=== PATIENT | female | born 1955 | race Caucasian/White ===

== ENCOUNTER 2020-09-04 05:19 | Observation (INO) ==
--- NOTE | 2020-08-15 15:21 | PAT Medication Instructions ---
Medication Instructions Date of Service August 15, 2020 Home Medications Flamydol Rx 100 mg PO TID PRN Inhaler Otc 1 inh INHALATION HS PRN Matrix 1 tab PO TID PRN Vitamin E Otc 1 cap PO QAM calcium carbonate [Tums] 400 mg PO HS PRN loratadine-pseudoephedrine [Claritin-D 12 Hour] 1 tab PO QAM PRN pregabalin [Lyrica] 75 mg PO BID ASK your surgeon for instructions Flamydol Rx 100 mg PO TID PRN STOP taking 2 weeks before surgery Vitamin E Otc 1 cap PO QAM Matrix 1 tab PO TID PRN DO NOT take the morning of surgery loratadine-pseudoephedrine [Claritin-D 12 Hour] 1 tab PO QAM PRN Take morning of surgery With a small sip of water, OTHERWISE NOTHING TO EAT OR DRINK AFTER MIDNIGHT: pregabalin [Lyrica] 75 mg PO BID Take evening before surgery Inhaler Otc 1 inh INHALATION HS PRN (if needed) calcium carbonate [Tums] 400 mg PO HS PRN (if needed) pregabalin [Lyrica] 75 mg PO BID Other Notes If you have any questions please call us at [phone] or [phone] or [phone] or [phone]
--- NOTE | 2020-08-20 10:52 | Anesthesiology Consultation ---
Date of Service August 20, 2020 Assessment & Plan (1) Encounter for pre-operative examination: COVID screening: Per assessment on 08/20: Travel screen negative since 08/10 (prior to that, was living in [facility]). Return from travel > 5 days prior to preop COVID testing. Patient vaccinated. No known COVID-19 positive contacts or current COVID-19 related symptoms. Surgeon arranging preop COVID testing. Awaiting results. Chart Review Chart Review: Acceptable Risk for Surgery (pending surgeon-ordered PCP clearance) and Patient seen in Pre Admission Testing Teaching & Discussion Pre-Anesthesia Teaching/Discussion Notes: Instructed NPO after midnight before surgery,except medications with 15 cc of water. Medication instructions provided according to the PAT guidelines. History Surgery Operation Date: 09/04/20 07:00 Proposed Procedures p Left Total Hip Arthroplasty - Hermelindo Sanchez MD Height/Weight Height: 5 ft 8 in Weight: 96.8 kg Allergies Allergy/AdvReac Type Severity Reaction Status Date / Time Sulfa (Sulfonamide Allergy Unknown Nausea Verified 08/15/20 11:20 Antibiotics) Medications Home Medications Medication Instructions Recorded Confirmed Last Taken Flamydol Rx 100 mg PO TID PRN 08/15/20 08/15/20 Unknown Inhaler Otc 1 inh INHALATION HS PRN 08/15/20 08/15/20 Unknown Matrix 1 tab PO TID PRN 08/15/20 08/15/20 Unknown Vitamin E Otc 1 cap PO QAM 08/15/20 08/15/20 Unknown calcium carbonate 200 mg calcium 400 mg PO HS PRN 08/15/20 08/15/20 Unknown (500 mg) chewable tablet (Tums) loratadine 5 mg-pseudoephedrine ER 1 tab PO QAM PRN 08/15/20 08/15/20 Unknown 120 mg tablet,extended release,12hr (Claritin-D 12 Hour) pregabalin 75 mg capsule (Lyrica) 75 mg PO BID 08/15/20 08/15/20 Unknown Past Medical History Medical History Diverticular disease GERD (gastroesophageal reflux disease) occasional Neuropathy hands, feet Osteoarthritis Exercise / Class Metabolic Activity II 4-5 Yardwork/Stairs/Walk up hill (one FS (no CP, no SOB)) Past Family History Family History Grandmother (Maternal) Family history of diabetes mellitus Sister Family history of diabetes mellitus Past Surgical History Surgical History History of appendectomy History of cholecystectomy History of colonoscopy History of esophagogastroduodenoscopy (EGD) History of hysterectomy Pilonidal cyst Removal Past Anesthesia History No Hx of Anesthesia Complications and No Family Hx of Anesthesia Complications History of PONV No Hx of PONV and Hx of Motion Sickness (occasional) Social History Smoking Status: Never smoker Do You Dip or Chew Tobacco: No Hx Alcohol Use: Yes Alcohol type: wine alcohol intake frequency: 0-2 drinks per day (1-2 drinks/day) Hx Substance Use: No Review of Systems Patient denies chest pain, shortness of breath, dyspnea on exertion, fever, c hills, cough, wheezing, palpitations. Physical Exam Vital Signs VITALS BP 134/89 P 64 TEMP 98.2 SP02 98%RA RESP 16 PHYSICAL Mildly decreased cervical extension range of motion (+ cervicalgia). Full TMJ range of motion. TMD 3 finger breaths Mallampati Score 3 Dentition: intact, implant (including upper front and molar) Lungs: clear throughout to auscultation Cardiac: regular rate and rhythm, no murmurs noted Spine: normal Carotid arteries: negative bruit Extremities: no edema Lab Results Anesthesia Preop Results Results Anesthesia Widget: WBC 5.10 K/uL (4.8-10.8) 08/20/20 Hgb 13.8 g/dL (12.0-16.0) 08/20/20 Hct 42.3 % (37-47) 08/20/20 Plt 206 K/uL (130-400) 08/20/20 Na 141 mmol/L (136-145) 08/20/20 K 4.7 mmol/L (3.5-5.1) 08/20/20 Cl 109 mmol/L (98-107) H 08/20/20 CO2 30 mmol/L (21-32) 08/20/20 BUN 24 mg/dl (7-18) H 08/20/20 Creat 0.74 mg/dl (0.6-1.2) 08/20/20 Glucose Level 85 mg/dl (70-99) 08/20/20 PT 10.3 Seconds (9.0-12.0) 08/20/20 INR 1.0 (0.9-1.1) 08/20/20 HA1c 5.2 % (4.5-5.6) 08/20/20 Urine Color Yellow 08/20/20 Urine Appearance Clear (Clear) 08/20/20 Urine pH 7.0 (4.5-7.5) 08/20/20 Urine Specific [place] 1.024 (1.000-1.030) 08/20/20 Urine Protein Negative (Negative) 08/20/20 Urine Glucose (UA) Negative (Negative) 08/20/20 Urine Ketones Negative (Negative) 08/20/20 Urine Blood Negative (Negative) 08/20/20 Urine Nitrite Negative (Negative) 08/20/20 Urine Bilirubin Negative (Negative) 08/20/20 Urine Urobilinogen Negative (Negative) 08/20/20 Urine Leukocyte Esterase Negative (Negative) 08/20/20 Blood Type B Positive 08/20/20 Antibody Screen NEGATIVE 08/20/20 Testing Electrocardiogram Date: 08/20/20 Kelvin bradycardia 58 bpm. LAD. Low voltage QRS.
--- NOTE | 2020-08-20 16:17 | History & Physical Report ---
Date of Service August 20, 2020 Assessment & Plan (1) Osteoarthritis of left hip: Plan: PRE-OP Diagnosis: Left hip osteoarthritis Planned Procedure: Left total hip arthroplasty Plan: Patient is scheduled to undergo this procedure at the [facility] on September 04, [address] Hermelindo Lowe risks and complications of the procedure such as: Infection, bleeding, pain, scarring, nerve or blood vessel damage, weakness, wound problems, stiffness, incomplete relief of symptoms, hardware failure, hardware loosening, wear, fracture, tendon or ligament injury, dislocation, leg length inequality, blood clots, embolism, heart attack, stroke and were explained to the patient at her visit by Dr. Sanchez on August 12. Informed consent form the procedure was obtained at that time. Patient also understands risks of proceeding with surgical invention during the COVID-19 pandemic. Currently she is asymptomatic and understands that she will need to be tested 2 to 3 days prior to her surgery. Patient is scheduled for her preanesthesia clearance evaluation hospital later this morning, and while there she will obtain a CBC with differential, complete metabolic panel, PT/INR, blood type and screen, urinalysis, urine culture and sensitivity, EKG, hemoglobin A1c and a nasal culture for MRSA. She is scheduled for her PCP clearance tomorrow at [address] Penn. During today's visit we reviewed the total hip packet, talked about total hip precautions, discussed discharge planning, talked about lectures offered by [facility] in regards to joint replacement surgery and the use of antibiotics prior to dental procedures following joint replacement. I provided the patient with orders to obtain a walker, raised toilet seat, shower chair and a hospital bed. Advised her to purchase a kit from either [employer] or [employer]. We also discussed the use of an abduction pillow for 6 weeks postoperatively. I advised the patient she will be discharged from the hospital with a prescription for opioid analgesic for postoperative pain control. She will also be prescribed diclofenac sodium for inflammation relief. She will be on a baby aspirin twice daily for blood clot prevention for the first 30 days postoperatively and we will have her supplement for additional pain using extra strength Tylenol. Patient is scheduled for 2- week postoperative follow-up with myself on September 17 at 11:15 AM. Patient verbalized understanding of all information provided during today's visit. She thanks for the care that she received. If she has questions or concerns should arise prior to her surgery, she will contact clinic. History of Present Illness Chief Complaint: Chief Complaint: Left hip pain Primary Care Provider: NO PCP History of Present Illness (including history relevant to procedure): This 65-year-old female presents the clinic today for preoperative history and ph ysical. Patient states that the pain has been ongoing for long time however during the last year pain intensified to the point that it started interfering with her activities of daily living and ambulation. She started to admit using a walker lately due to that. She stated that the initially she had right hip pain but afterwards the pain shifted to the left side. She has been seen by In [facility] and an MRI was done for hip back there, the doctor advised her to proceed with a total hip replacement. In March 2020 she had an injection of her left trochanteric bursa for bursitis, currently she is not experiencing any lateral hip pain. Review Of Systems: A 14 point review of systems performed is unremarkable except for those things stated in the HPI and past medical history. Past Medical History: Problems: Osteoarthritis of left hip Pre-op exam Obesity Sleep apnea Polyneuropathy GERD Procedure History Procedure Procedure Date Comments Dental implants Hysterectomy Cholecystectomy Allergies and Sensitivities: sulfa drugs(nausea) Family history: Cancer, rheumatoid arthritis, diabetes, leukemia and heart disease Social history: Patient denies tobacco or illicit drug use. She states she consumes approximately 14 alcoholic beverages per week Current Home Meds: (Last Updated 08/20 09:08) acetaminophen-traMADol (acetaminophen-traMADol 325 mg-37.5 mg oral tablet) 2 tab PO q12h PRN: as needed for pain diclofenac (diclofenac sodium 100 mg oral tablet, extended release) 100 mg PO Daily PRN: as needed for pain fexofenadine (Jyotsna) pregabalin (Lyrica) Allergies Allergy/AdvReac Type Severity Reaction Status Date / Time Sulfa (Sulfonamide Allergy Unknown Nausea Verified 08/15/20 11:20 Antibiotics) Home Medications Medication Instructions Recorded Confirmed Type Flamydol Rx 100 mg PO TID PRN 08/15/20 08/15/20 History Inhaler Otc 1 inh INHALATION HS PRN 08/15/20 08/15/20 History Matrix 1 tab PO TID PRN 08/15/20 08/15/20 History Vitamin E Otc 1 cap PO QAM 08/15/20 08/15/20 History calcium carbonate 200 mg calcium 400 mg PO HS PRN 08/15/20 08/15/20 History (500 mg) chewable tablet (Tums) loratadine 5 mg-pseudoephedrine ER 1 tab PO QAM PRN 08/15/20 08/15/20 History 120 mg tablet,extended release,12hr (Claritin-D 12 Hour) pregabalin 75 mg capsule (Lyrica) 75 mg PO BID 08/15/20 08/15/20 History Past Med/Surg History Medical History (Updated 08/20/20 @ 16:17 by Kelivn Vizcaino PA-C) Diverticular disease GERD (gastroesophageal reflux disease) occasional Neuropathy hands, feet Osteoarthritis Surgical History History of appendectomy History of cholecystectomy History of colonoscopy History of esophagogastroduodenoscopy (EGD) History of hysterectomy Pilonidal cyst Removal Family History Grandmother (Maternal) Family history of diabetes mellitus Sister Family history of diabetes mellitus Social History (Updated 08/15/20 @ 12:03 by Milagro Hinton RN) Smoking Status: Never smoker Second Hand Exposure: Yes (PARENST SMOKED); Hx Alcohol Use: Yes Alcohol type: wine Hx Substance Use: No Preferred Language: Botswanan Communication Ability: Effective Beeswax Bleacher Required: No Beliefs That Will Affect Care: None Current Living Situation: Family Current Living Situation Comment: [facility] WITH [facility] FOR SURGERY current occupational status: retired Feels Safe at Home: Yes Assistive Devices: Cane and Glasses Physical Exam Physical Exam: Physical Exam: (relevant to the procedure, including heart and lung evaluation) General: Alert and oriented x3 with proper grooming and hygiene Eyes: Pupils are equal and reactive to light with accommodation. Extraocular movements are intact Throat: Deferred due to COVID-19 precautions Cardiac: Regular rate and rhythm with no murmurs or gallops appreciated Lungs: Clear to auscultation throughout with no wheezing rales or rhonchi Abdomen: Obese, nondistended, nontender with NABS Extremities: Physical examination of the hips: Neurovascularly intact. Walking without crutches revealed some limping to the left side. Range of motion of the right hip: Flexion 100 degrees, abduction 30 degrees, adduction 15 degrees, internal rotation 20 degrees, external rotation 30 degrees. Range of motion of the left hip: Flexion 90 degrees, abduction 25 degrees, adduction 15 degrees, internal rotation 0 degrees, external rotation 45 degrees. There is flexion contracture of the left hip. And severe pain is experiencing upon moving the hip Neuro: Cranial nerves II through XII are intact no motor or sensory deficit Skin: Normal in appearance with no open skin areas or discharge Results & Data ([facility]) Diagnostic Findings Studies (relevant to the procedure): X-rays of the pelvis and the left hip AP lateral in the standing position were done and interpreted by Dr. Sanchez. They showed severe osteoarthritic changes bilaterally more on the left side.
[2020-09-04] MEDS ORDERED: ROPIVACAINE 0.5% HCL/PF 150 MG, BUPIVACAINE 0.75% MPF 20 ML, EPINEPHrine 0.15 MG, Ketor... INFIL SCH (06:00)
[2020-09-04] MEDS ORDERED: TRANEXAMIC ACID 1,000 MG **IV Intra-op IV SCH (06:00)
[2020-09-04] MEDS ORDERED: METOCLOPRAMIDE HCL 10 MG TABLET PO SCH (06:00)
[2020-09-04] MEDS ORDERED: LR 500ML BOLUS, THEN 15ML/HR IV SCH (06:00)
[2020-09-04] MEDS ORDERED: ceFAZolin 2000MG 2,000 MG/15 ML SYR IV SCH (06:00)
[2020-09-04] MEDS ORDERED: Scopolamine 1 MG TDSY TD SCH (06:00)
[2020-09-04] MEDS ORDERED: TRANEXAMIC ACID 1,000 MG **IV Pre-op IV SCH (06:00)
[2020-09-04] MEDS ORDERED: dexAMETHasone 4 MG TAB PO SCH (06:00)
[2020-09-04] MEDS ORDERED: LR 60ML/HR IV SCH (06:00)
[2020-09-04] MEDS ORDERED: FAMOTIDINE 20 MG TAB PO SCH (06:00)
[2020-09-04] MEDS ORDERED: ACETAMINOPHEN 500 MG TAB PO SCH (06:00)
[2020-09-04] MEDS ORDERED: traMADol HCL 50 MG TABLET PO SCH (06:00)
[2020-09-04] MEDS ORDERED: BUPIVACAINE 0.5 % 5 MG/1 ML PF 10ML VIAL ONE (06:17)
[2020-09-04] MEDS ORDERED: PROPOFOL IV EMULSION 10 MG/ML 20 ML VIAL IV ONE ×3 (06:25→08:27)
[2020-09-04] MEDS ORDERED: LIDOCAINE 2% 2 ML VIAL/AMP(20MG/ML) INFIL ONE (06:25)
[2020-09-04] MEDS ORDERED: MIDAZOLAM HCL 1 MG/ML 2ML VIAL ONE (06:26)
[2020-09-04] MEDS ORDERED: ORTHO JOINT ANESTHETIC ONE (06:39)
[2020-09-04] MEDS ORDERED: ATROPINE SULFATE 0.1 MG/ML 10ML SYR IV PRN (06:42)
[2020-09-04] MEDS ORDERED: ONDANSETRON INJ 2 MG/ML 2 ML VIAL IV PRN (06:42)
[2020-09-04] MEDS ORDERED: ePHEDrine sulfate 50 MG/ML AMP IV PRN (06:42)
[2020-09-04] MEDS ORDERED: HYDROmorphone INJ 1 MG/ML SYRINGE IV PRN (06:42)
--- NOTE | 2020-09-04 06:45 | History & Physical Bridge Note ---
Date of Service September 04, 2020 History & Physical Bridge Note I have examined the patient, reviewed the History & Physical and in the interval since the performance of the History & Physical I have noted the following changes of clinical significance: no changes noted
[2020-09-04] MEDS ORDERED: ESMOLOL HCL INJ 10 MG/ML 10ML VIAL IV ONE (07:42)
[2020-09-04] MEDS ORDERED: ONDANSETRON INJ 2 MG/ML 2 ML VIAL ONE (08:36)
[2020-09-04] MEDS ORDERED: NALOXONE HCL 0.4 MG/1 ML VIAL/CARP IV PRN (09:06)
[2020-09-04] MEDS ORDERED: METOCLOPRAMIDE HCL INJ 5 MG/ML 2 ML VIAL IV PRN (09:06)
[2020-09-04] MEDS ORDERED: diphenhydrAMINE 50 MG/ML VIAL IV PRN (09:06)
[2020-09-04] MEDS ORDERED: bisacodyL 10 MG SUPP PR PRN (09:06)
[2020-09-04] MEDS ORDERED: MAGNESIUM HYDROXIDE SUSP 30 ML UDC PO PRN (09:06)
--- NOTE | 2020-09-04 09:06 | Operative Report ---
Post Operative Report Pre & Post Diagnosis Operation Date: 09/04/20 07:00 Pre-Op Diagnosis: Left Hip Osteoarthritis Post-Op Diagnosis: Left Hip Osteoarthritis I identified the patient and participated in the time-out.: Yes Procedure Operation Date: 09/04/20 07:00 Actual Procedures p Left Total Hip Arthroplasty(Left) - Hermelindo Sanchez MD Surgeon Hermelindo Sanchez MD Screen Print Operator Minoo Vizcaino PA-Santy Estimated Blood Loss 100 Findings Consistent with Post-Op Diagnosis Osteoarthritic left hip Specimens femoral head Description of Procedure I was present during the entire procedure assisting with positioning, prepping, draping, wound retraction, wound closure and dressing application. No fellow present. Please see Dr. Sanchez procedure note for specifics of the case. I attest to the content of the Intraoperative Record and any orders documented therein. Any exceptions are noted below.
[2020-09-04] MEDS ORDERED: [UNRECOGNIZED DRUG - OTHER] INH PRN (09:12)
[2020-09-04] MEDS ORDERED: CALCIUM CARBONATE 500 MG CHEWABLE TAB PO PRN ×2 (09:12→10:37)
[2020-09-04] MEDS ORDERED: [UNRECOGNIZED DRUG - OTHER] PO PRN (09:12)
[2020-09-04] MEDS ORDERED: [UNRECOGNIZED DRUG - OTHER] PO PRN (09:12)
[2020-09-04] MEDS ORDERED: SODIUM CHLORIDE 0.9% 1000ML 1,000 ML IV SCH (09:15)
--- NOTE | 2020-09-04 09:32 | XRay Report ---
XR pelvis 1-2V routine HISTORY: 65 years-old Female Post Surgical left hip total joint arthroplasty COMPARISON: Pelvis radiograph 08/20/2020 TECHNIQUE: AP view of the pelvis FINDINGS: Left hip total joint arthroplasty demonstrates satisfactory alignment. No acute fracture or unexpecte d opaque foreign body. Expected postoperative soft tissue swelling with deep tissue air lateral to th e left hip. Moderate to severe right hip osteoarthritis. IMPRESSION: Left hip total joint arthroplasty with expected postoperative changes. ACT 112: Negative or not required by law. The above report was generated using voice recognition software. It may contain grammatical, syntax o r spelling errors. Electronically signed by: Juan Shay M.D. 09/04/2020 9:30 AM
--- NOTE | 2020-09-04 09:46 | Anesthesiology Progress Note ---
Date of Service September 04, 2020 Anesthesia Post Procedure Vital Signs Vital Signs: Temp Pulse Pulse Resp BP Pulse Ox 09/04/20 09:40 36.4 C L 60 14 113/71 95 09/04/20 09:30 61 15 106/76 100 09/04/20 09:20 53 L 14 96/65 L 100 09/04/20 09:10 53 L 16 108/65 100 09/04/20 09:02 36.3 C L 63 19 95/59 L 96 09/04/20 05:51 36.7 C 75 18 134/87 96 Pain Intensity Left Hip: Pain Intensity: 4 Transfer of Care Handoff Completed per policy Notes Mental Status: alert / awake / arousable Patient Amnestic to Procedure: Yes Nausea / Vomiting: adequately controlled Pain: adequately controlled Airway Patency, RR, SpO2: stable & adequate BP & HR: stable & adequate Hydration State: stable & adequate Anesthetic Complications: no major complications apparent
--- NOTE | 2020-09-04 11:11 | Operative Report ---
Post Operative Report Pre & Post Diagnosis Operation Date: 09/04/20 07:00 Pre-Op Diagnosis: Left Hip Osteoarthritis Post-Op Diagnosis: Left Hip Osteoarthritis I identified the patient and participated in the time-out.: Yes Procedure Operation Date: 09/04/20 07:00 Actual Procedures p Left Total Hip Arthroplasty(Left) - Hermelindo Sanchez MD Surgeon Hermelindo Sanchez MD Ambulance Officer Minoo Vizcaino PA-C Estimated Blood Loss 100 Findings Consistent with Post-Op Diagnosis Specimens Left femoral head Anesthesia Type Spinal MAC Complications none Indications 65-year-old female with left hip arthritis refractory to conservative management. X-rays demonstrate focf-ep-hjan arthritis. I had a long discussion with her about the risks and benefits of surgery, alternatives to surgery, and expected outcomes. After reviewing all these she elected proceed with surgery. All questions were answered. Informed consent was signed. Description of Procedure Patient was identified in the preoperative holding area and the surgical site, left hip, was marked. A spinal anesthetic was placed, then the patient was brought back to the main operating room, placed in the operating table and moved into the lateral decubitus position. Axillary roll was placed. All bony prominences were padded. Perioperative antibiotics and tranexamic acid 1 gram IV were administered. Operative extremity was prepped and draped in the normal sterile fashion. Prior to incision a multidisciplinary timeout was called. All in the room were in agreement. We began by making an incision for a posterior approach to the hip. We dissected down through subcutaneous tissues to the level of the fascia. The fascia was incised in line with the incision. Charnley bow was placed. The trochanteric bursa was excised. The piriformis and short external rotators were dissected off the posterior aspect of the hip. A box cut was made in the capsule. The femoral head was dislocated. The femoral neck cut was made at our preoperative template. The acetabulum was then exposed. The labrum was sharply excised. Contents of the cotyloid fossa were removed with electrocautery. We then began reaming at a size 8 mm less than our preoperative template. We reamed up by 1 [address] the way up to a size 54 mm cup. This gave us good bleeding cancellus bone circumferentially. The acetabulum was then irrigated out and dried. The real Concan Gription cup was then impacted down into position with 45 degrees of lateral opening and 25 degrees of anteversion. A single cancellous bone screw was placed up into the ilium. Excellent fixation was obtained. An Altrx polyethylene liner for a 36 mm femoral head was then impacted into the shell. The locking mechanism was checked to ensure that it had engaged which it had. Next we turned our attention to the femur. The lateral neck was removed with a box osteotome. Intramedullary guide was used followed by the lateralizing reamer. We then reamed up to a size 4 Dunn stem. We then broached all the way up to a size 4. We began trialing with a high offset neck and a +5 head. Hip was reduced. Leg lengths were symmetric. The hip was stable in extension and external rotation, and stable in the sleeper position. At 90 degrees of hip flexion the hip could be internally rotated 55 degrees before levering out of the cup. I was very happy with the stability exam. Therefore the hip was dislocated and the femoral trial was removed. The femoral canal was irrigated and dried. The real size 4 high offset Dunn femoral stem was opened up. This was impacted down into position. It sat at the same level as the femoral trial. Therefore the 36 mm ceramic femoral head with a +5 mm offset was opened up and gently impacted down onto the trunnion. The hip was atraumatically reduced. Another 1 gram of IV tranexamic acid was started prior to closure. The wound was irrigated out with sterile Betadine solution. The periarticular injection cocktail was then placed. The short external rotators, piriformis, and posterior capsule were repaired through drill holes in the greater trochanter using #2 Vicryl. The fascia was run with a looped #1 PDS. The subcutaneous layer was closed with #1 PDS. The dermal layer was closed with 2-0 Vicryl. Zip line was used for the skin followed by a Silverlon dressing. A compressive dressing was then placed. The patient was then rolled supine. Leg lengths were rechecked and were symmetric. An abduction pillow was placed. Sedation was lifted and the patient was transferred to recovery room in stable condition. Summary of implants: Depuy Concan Gription Acetabular Shell Sector Cup, 54 mm outer diameter Concan Cancellous bone screw, 6.5 x 40 mm Concan Altrx Polyethylene Acetabular Liner, Neutral, with a 36 mm inner diameter DePuy Dunn Femoral stem with Porocoat, 12/14 taper, size 4 high offset 36 mm ceramic femoral head with +5 offset Postoperative course: Patient will be admitted to the hospital from the recovery room. Patient will be weightbearing as tolerated with posterior hip precautions. Aspirin for DVT prophylaxis I attest to the content of the Intraoperative Record and any orders documented therein. Any exceptions are noted below.
[2020-09-04] MEDS: KETOROLAC TROMETHAMINE 15 MG/ML VIAL IV SCH ×3 (11:52→23:08)
[2020-09-04] MEDS: ACETAMINOPHEN 500 MG TAB PO SCH ×2 (13:13→21:32)
[2020-09-04] MEDS: ceFAZolin 2000MG 2,000 MG/15 ML SYR IV SCH ×2 (15:30→23:07)
[2020-09-04] MEDS ORDERED: TRANEXAMIC ACID / 0.7% NACL 1,000 MG/100 ML BAG IV SCH (16:00)
[2020-09-04] MEDS: Scopolamine CHECK PATCH PLACEMENT SCH ×2 (16:29→23:08)
[2020-09-04] MEDS: oxyCODONE HCL IR 5 MG TAB (IMMEDIATE RELEASE) PO PRN (18:45)
[2020-09-04] MEDS: DOCUSATE SODIUM 100 MG CAP PO SCH (21:32)
[2020-09-04] MEDS: PREGABALIN 75 MG CAP PO SCH (21:32)
[2020-09-04] MEDS: SENNA 8.6 MG TAB PO SCH (21:33)
[2020-09-05] MEDS: KETOROLAC TROMETHAMINE 15 MG/ML VIAL IV SCH (05:53)
[2020-09-05] MEDS: ACETAMINOPHEN 500 MG TAB PO SCH ×3 (05:54→21:18)
[2020-09-05] MEDS ORDERED: dexAMETHasone 4 MG TAB PO SCH (08:00)
[2020-09-05] MEDS: PREGABALIN 75 MG CAP PO SCH ×2 (08:12→21:17)
[2020-09-05] MEDS: ASPIRIN 81 MG ECTAB PO SCH ×2 (08:13→21:18)
[2020-09-05] MEDS: oxyCODONE HCL IR 5 MG TAB (IMMEDIATE RELEASE) PO PRN (08:13)
[2020-09-05] MEDS: TOCOPHERYL, DL-ALPHA 100 UNITS CAP PO SCH (08:14)
[2020-09-05] MEDS: MULTIVITAMIN TAB PO SCH (08:14)
[2020-09-05] MEDS: DOCUSATE SODIUM 100 MG CAP PO SCH ×2 (08:15→21:17)
[2020-09-05] MEDS: ONDANSETRON INJ 2 MG/ML 2 ML VIAL IV PRN ×3 (08:18→23:41)
[2020-09-05] MEDS: Scopolamine CHECK PATCH PLACEMENT SCH ×3 (09:09→23:33)
[2020-09-05 09:39] LABS: ALC (manual) 1.73 K/uL (1.2-3.4); ANC (manual) 9.53 K/uL (1.4-6.5); Hematocrit (blood only) 38.2 % (37-47); Hemoglobin 12.4 g/dL (12.0-16.0); Lymphocytes # (manual) 1.73 K/uL (1.2-3.4); Lymphocytes % (manual) 14.8 %; Mean Corpuscular Hemoglobin 31.6 pg (25-34); Mean Corpuscular Hgb Conc 32.5 g/dL (32-36); Mean Corpuscular Volume 97.4 fL (80-100); Mean Platelet Volume 10.5 fL (7.4-10.4); Monocytes # (manual) 0.41 K/uL (0.11-0.59); Monocytes % (manual) 3.5 %; Neutrophils # (manual) 9.53 K/uL (1.4-6.5); Neutrophils % (manual) 81.7 %; Platelet Count 225 K/uL (130-400); RDW Standard Deviation 46.1 fL (36.4-46.3); Red Blood Count 3.92 M/uL (4.2-5.4); White Blood Count 11.67 K/uL (4.8-10.8)
[2020-09-05 09:53] LABS: BUN Creatinine Ratio 27.3 (10-20); Calcium 8.4 mg/dl (8.5-10.1); Creatinine Clr Calc Pharmacy 71.4 ml/min; Est GFR (African American) 74.7 ml/min; Est GFR (Non-African American) 64.4 ml/min; Potassium 4.2 mmol/L (3.5-5.1)
--- NOTE | 2020-09-05 17:06 | Orthopedic Progress Note ---
Date of Service September 05, 2020 Assessment & Plan (1) Status post left hip replacement: (2) Nausea: Plan: Will have hospitalist team see her regarding her heartburn and nausea and ensure this is not of cardiac origin Patient did OK with PT today, but was recommended she remain in hospital for another day for continued physical therapy. OK to shower Posterior hip precautions Aspirin for DVT prophylaxis. Follow-up CARLI Vizcaino in 2 weeks Admission and Anticipated Discharge Date Admission Date: September 04, 2020 Subjective Patient had some nausea and heartburn this morning, but her pain is well controlled. Nurse reports she did not respond to tums or zofran. Having difficulty raising her leg to get out of bed. No fevers/chills. Physical Exam Physical Exam: NAD Breathing non labored. L hip: dressing c/d/i. NVI Results & Data ([facility]) Vital Signs (Past 12 Hours) Vital Signs Temp Pulse Resp BP BP Pulse Ox Pulse Ox 09/05/20 15:59 36.6 C 46 L 16 115/73 95 09/05/20 11:37 97 09/05/20 11:35 37.0 C 57 L 16 101/68 97/66 L 96 09/05/20 07:40 36.7 C 66 16 95/62 L 94
[2020-09-05] MEDS ORDERED: FAMOTIDINE 20 MG in SYRINGE 3 ML IV ONE (17:30)
[2020-09-05] MEDS: ALUMINUM/MAGNESIUM SUSP 30 ML UDC PO PRN ×2 (17:31→23:42)
--- NOTE | 2020-09-05 17:40 | Hospitalist Consultation ---
Date of Consultation September 05, 2020 Assessment & Plan (1) Heartburn: reported in patient POD 1 s/p L TKA with Dr Sanchezf Tolerated procedure well but did receive pre-op pepcid in patient w hx GERD along with NSAID and 8mg dexamethasone Additional 8mg dexamethasone was given this morning but no pepcid She got tums x1 without relief thus far EKG placed by attending to r/o cardiac nature, however low suspcision for cardiac etiology given no CP, cardiac hx, HTN/HLD, smoking history, diabetes, etc and description of epigastric discomfort worse when laying flat in bed Associated nausea but no vomiting Admitted to taking baking soda at home as needed and Maalox frequently in the past Asked RN to administer dose of Maalox and ordered Pepcid 20mg IVP x [address] on daily pepcid and would continue at least for time being at discharge Monitor for effectiveness and notify if ineffective Will need to be cautious about her use of diclofenac at discharge to prevent gastritis as she has gotten this in the past (2) Nausea: suspect 2nd to reflux zofran given earlier today x 2, no improvement no acute distress, no vomiting. passing gas but no BM but no abd pain on exam outside of pain on maalox + pepcid as above continue pepcid daily at d/c monitor response (3) Status post left hip replacement: POD #1 s/p L TKA with Dr. Sanchez DVT proph with ASA 81mg BID Post-op management per primary service (4) GERD (gastroesophageal reflux disease): hx of, likely cause of need for current consult see above (5) Neuropathy: continued on lyrica daily 75mg BID Supervising Physician Co-Signing Physician Notes Patient seen and examined at bedside. My history and physical exam did not differ from above. Discussed case with APC Caity and patient. Will treat GERD with maalox, and pepcid, patient improving. will sign off case, History of Present Illness Reason for Consultation: heartburn, nausea Requesting Physician: Dr Sanchez Attending Physician: Hermelindo Sanchez MD History of Present Illness 65 yo female with PMH significant for GERD, Diverticular disease, neuropathy and osteoarthritis presented for LEFT total hip arthroplasty with Dr Sanchez. Patient tolerated procedure well. Pain controlled to hip. Has been up and ambulating but noted nausea/heartburn this morning/afternoon. Got tums x 1 which was not effective and has been slightly nauseous. Denies chest pain. Located in epigastric region without radiation. Worse when laying flat. She notes she typically has used Maalox in the past and it had been her best friend. She did get a dose of pepcid pre-op but also noted dexamethasone 8mg pre-op along with toradol and she notes when reflux bad at home she uses baking soda. Note additional 8mg dexamethasone given this morning. Discussed orthopedics consultation with orders for EKG, however patient agreeable to see if IV push of pepcid + maalox effective first and then she would be agreeable to continue pepcid daily. If ineffective she will let nursing know and we will order additional medications/look at EKG however doubt cardiac in nature. No smoking or cardiac history.No smoking hx. No chest pain, palpitations, vomiting, fever, chills, shortness of breath noted. Has been passing gas but no BM yet. No abdominal pain, moreso heartburn. Allergies Allergy/AdvReac Type Severity Reaction Status Date / Time Sulfa (Sulfonamide Allergy Unknown Nausea Verified 09/04/20 05:44 Antibiotics) Home Medications Medication Instructions Recorded Confirmed Type Inhaler Otc 1 inh INHALATION HS PRN 08/15/20 09/04/20 History Vitamin E Otc 1 cap PO QAM 08/15/20 09/04/20 History calcium carbonate 200 mg calcium 400 mg PO HS PRN 08/15/20 09/04/20 History (500 mg) chewable tablet (Tums) loratadine 5 mg-pseudoephedrine ER 1 tab PO QAM PRN 08/15/20 09/04/20 History 120 mg tablet,extended release,12hr (Claritin-D 12 Hour) pregabalin 75 mg capsule (Lyrica) 75 mg PO BID 08/15/20 09/04/20 History diclofenac sodium 75 mg 75 mg PO BID 30 Days #60 tab 09/04/20 Rx tablet,delayed release oxycodone 5 mg tablet 5 mg PO Q3H #30 tab 09/04/20 Rx Patient History Medical History (Updated 09/05/20 @ 17:31 by Leann Carolina PA-C) Diverticular disease GERD (gastroesophageal reflux disease) occasional Neuropathy hands, feet Osteoarthritis Surgical History History of appendectomy History of cholecystectomy History of colonoscopy History of esophagogastroduodenoscopy (EGD) History of hysterectomy Pilonidal cyst Removal Family History Grandmother (Maternal) Family history of diabetes mellitus Sister Family history of diabetes mellitus Social History Smoking Status: Never smoker Second Hand Exposure: Yes (as child); Do You Dip or Chew Tobacco: No; Hx Alcohol Use: Yes Alcohol type: beer and wine Hx Substance Use: No Preferred Language: Armenian Communication Ability: Effective Veterinary Pathologist Required: No Beliefs That Will Affect Care: None Current Living Situation: Spouse Current Living Situation Comment: pt lives in [facility], staying with barbara here, 1 step to enter, no steps current occupational status: retired Other Information That Helps Us Care for You: No Feels Safe at Home: Yes Safety Concerns: Feels Safe At This Time Assistive Devices: Walker Review of Systems Review of Systems: All systems reviewed & are unremarkable except as noted in HPI & below Physical Exam Physical Exam: WD, WN, NAD, walking back from bathroom with walker. [id number] Yas at bedside ENT: mmm, no tracheal deviation RESP: CTAB, no w/c/r chest: non-tender to palpation across precordium CV: bradycardic, S1/S2, no m/r/g, no edema ABD; +BS, soft, minimally tender epigastric region but only to DEEP palpation. no guarding or rigidity. Skin: warm, dry, dressing to hip c/d/i Results & Data Results & Data ([facility]) Vital Signs (Past 12 Hours) Vital Signs Temp Pulse Resp BP BP Pulse Ox Pulse Ox 09/05/20 15:59 36.6 C 46 L 16 115/73 95 09/05/20 11:37 97 09/05/20 11:35 37.0 C 57 L 16 101/68 97/66 L 96 09/05/20 07:40 36.7 C 66 16 95/62 L 94 Laboratory Results 09/05/20 09/05/20 Range/Units 08:53 08:53 WBC 11.67 H (4.8-10.8) K/uL RBC 3.92 L (4.2-5.4) M/uL Hgb 12.4 (12.0-16.0) g/dL Hct 38.2 (37-47) % MCV 97.4 (80-100) fL MCH 31.6 (25-34) pg MCHC 32.5 (32-36) g/dL RDW Std Deviation 46.1 (36.4-46.3) fL RDW Coeff of Ilan 13.0 (11.5-14.5) % Plt Count 225 (130-400) K/uL MPV 10.5 H (7.4-10.4) fL Neutrophils % (Manual) 81.7 % Lymphocytes % (Manual) 14.8 % Monocytes % (Manual) 3.5 % Neutrophils # (Manual) 9.53 H (1.4-6.5) K/uL Total Absolute Neuts 9.53 H (1.4-6.5) K/uL Lymphocytes # (Manual) 1.73 (1.2-3.4) K/uL Total Abs Lymphocytes 1.73 (1.2-3.4) K/uL Monocytes # (Manual) 0.41 (0.11-0.59) K/uL Sodium 138 (136-145) mmol/L Potassium 4.2 (3.5-5.1) mmol/L Chloride 106 (98-107) mmol/L Carbon Dioxide 32 (21-32) mmol/L Anion Gap 0 L (3-11) BUN 25 H (7-18) mg/dl Creatinine 0.92 (0.6-1.2) mg/dl Est Cr Clr Drug Dosing 71.4 ml/min Est GFR ( Amer) 74.7 ml/min Est GFR (Non-Af Amer) 64.4 ml/min BUN/Creatinine Ratio 27.3 H (10-20) Glucose 99 (70-99) mg/dl Calcium 8.4 L (8.5-10.1) mg/dl PG Care Time/CCT Total # of Minutes Spent Total Time Spent with Patient: Total time spent is greater than 50% in coordination of care (as documented) at patient's floor/unit and/or counseling patient: Coding Level of Care Code 30487 Office/OBS Consult Lvl 3 Diagnoses Status post left hip replacement Z96.642 Nausea R11.0 Heartburn R12 GERD (gastroesophageal reflux disease) K21.9 Neuropathy G62.9
[2020-09-05] MEDS: SENNA 8.6 MG TAB PO SCH (21:18)
[2020-09-05 23:53] VITALS: O2SAT 96
[2020-09-06] MEDS: oxyCODONE HCL IR 5 MG TAB (IMMEDIATE RELEASE) PO PRN ×2 (00:45→07:52)
[2020-09-06] MEDS: ACETAMINOPHEN 500 MG TAB PO SCH (06:17)
[2020-09-06 07:00] VITALS: PULSE 64; TEMP 98.2
[2020-09-06] MEDS: Scopolamine CHECK PATCH PLACEMENT SCH (07:36)
[2020-09-06] MEDS: MULTIVITAMIN TAB PO SCH (07:38)
[2020-09-06] MEDS: TOCOPHERYL, DL-ALPHA 100 UNITS CAP PO SCH (07:38)
[2020-09-06] MEDS: DOCUSATE SODIUM 100 MG CAP PO SCH (07:39)
[2020-09-06] MEDS: ASPIRIN 81 MG ECTAB PO SCH (07:39)
[2020-09-06] MEDS: ALUMINUM/MAGNESIUM SUSP 30 ML UDC PO PRN (07:51)
[2020-09-06] MEDS: PREGABALIN 75 MG CAP PO SCH (07:51)
[2020-09-06] MEDS ORDERED: FAMOTIDINE 20 MG TAB PO SCH (09:00)
--- NOTE | 2020-09-06 11:10 | Orthopedic Progress Note ---
Date of Service September 06, 2020 Assessment & Plan (1) Status post left hip replacement: Plan: Postop day 2, status post left total hip arthroplasty by Dr. Sanchez. Continue PT and OT today. Appreciate hospitalist assistance. They have signed off. Ice to left lower extremity. Weight-bear as tolerated left lower extremity. Posterior hip precautions. She may out of bed as tolerated with the assistance of a walker. I will send her home with some Zofran to take as needed for nausea. Pain medications and anti-inflammatories have been sent to her pharmacy. Follow-up as scheduled with CARLI Vizcaino in 2 weeks. Call with any issues or questions. She does feel safe to return to home today. The discharge order has been placed. Her discharge instructions are in her chart. She states that she was approved for [facility] and if she goes home today she may want to go to [facility] in a few days depending on how it goes. I did explain to her that that is a different story with after she leaves the hospital. The authorization is no longer good for her admission. She may want to talk to case management prior to leaving today. (2) Nausea: Plan: I will send her home with some Zofran that she can take as needed. This was sent to her pharmacy. Admission and Anticipated Discharge Date Admission Date: September 04, 2020 Subjective Patient out of bed, walking around the room with her walker. Doing fine. States that she does feel better today but still some slight nausea. She was seen by the hospital service and it was ruled out a cardiac origin. She states that she does feel ready to go home. She had physical therapy today in which she did well with. She states that did work on steps. Physical Exam Musculoskeletal: Left hip dressings, Silverlon intact. No noticeable donna inage. Mild edema to her left thigh. No distal edema into her foot. Knee-high GENIA stockings in place. Calf is nontender and supple. Tolerates full range of motion of her ankle. Distal pulses are 1+. Distal sensation is normal. Results & Data ([facility]) Vital Signs (Past 12 Hours) Vital Signs Temp Pulse Resp BP Pulse Ox 09/06/20 06:56 36.8 C 64 18 100/64 96 09/05/20 23:51 36.7 C 60 16 122/82 96 Laboratory Results 09/06/20 Range/Units 06:09 Vitamin B12 415 (193-986) pg/ml
[2020-09-06 12:21] VITALS: BP 117/77
--- NOTE | 2020-09-08 09:57 | Discharge Summary ---
Date of Service 2020 Admission HPI Per Admitting Provider History of Present Illness (including history relevant to procedure): This 65-year-old female presents the clinic today for preoperative history and physical. Patient states that the pain has been ongoing for long time however during the last year pain intensified to the point that it started interfering with her activities of daily living and ambulation. She started to admit using a walker lately due to that. She stated that the initially she had right hip pain but afterwards the pain shifted to the left side. She has been seen by [facility] and an MRI was done for hip back there, the doctor advised her to proceed with a total hip replacement. In March 2020 she had an injection of her left trochanteric bursa for bursitis, currently she is not experiencing any lateral hip pain. Review Of Systems: A 14 point review of systems performed is unremarkable except for those things stated in the HPI and past medical history. Past Medical History: Problems: Osteoarthritis of left hip Pre-op exam Obesity Sleep apnea Polyneuropathy GERD Procedure History Procedure Procedure Date Comments Dental implants Hysterectomy Cholecystectomy Allergies and Sensitivities: sulfa drugs(nausea) Family history: Cancer, rheumatoid arthritis, diabetes, leukemia and heart disease Social history: Patient denies tobacco or illicit drug use. She states she consumes approximately 14 alcoholic beverages per week Current Home Meds: (Last Updated 08/20 09:08) acetaminophen-traMADol (acetaminophen-traMADol 325 mg-37.5 mg oral tablet) 2 tab PO q12h PRN: as needed for pain diclofenac (diclofenac sodium 100 mg oral tablet, extended release) 100 mg PO Daily PRN: as needed for pain fexofenadine (Jyotsna) pregabalin (Lyrica) Principal Diagnosis Left hip osteoarthritis Discharge Data Allergies Allergy/AdvReac Type Severity Reaction Status Date / Time Sulfa (Sulfonamide Allergy Unknown Nausea Verified 09/04/20 05:44 Antibiotics) Consultations 09/05/20 17:04 Consult Hospitalist Routine Procedures Performed Operation Date: 09/04/20 07:00 Actual Procedures p Left Total Hip Arthroplasty(Left) - Hermelindo Sanchez MD Hospital Course (1) Status post left hip replacement: 65-year-old female underwent left total hip arthroplasty performed by Dr. Smart on 09-04-20. Patient tolerated anesthesia. Surgery was without complications. She was transferred to the floor. She received 24 hours of postop antibiotics. Postop day 1 blood work within normal limits. Vital signs remained stable throughout stay. Patient did have some nausea and heartburn throughout her hospital stay. Hospitalist was consulted. She was provided Maalox and Pepcid as well as Zofran. DVT prophylaxis in-house consisted of knee-high GENIA hose, foot pumps and aspirin 81 mg twice a day. Patient tolerated regular diet and p.o. fluids. She was able to urinate without issue. She has not had a bowel movement prior to discharge. Patient was seen by OT and PT. She is able to follow standard hip precautions. Abductor pillow while in bed. However patient was unable to do steps until postop day 2. Also nausea did interfere with her ability to participate in PT on postop day 1. Patient's Silverlon dressing remained intact throughout her hospital stay. Outer compressive dressing was removed on postop day 1. On postop day 2 patient was deemed stable to be discharged. Postop medications include Zofran, oxycodone, diclofenac, Tylenol, and aspirin 81 mg. OTC stool softner recommended as well and heartburn medications. DVT prophylaxis will consist of the aspirin 81 mg twice a day for 6 weeks as well as knee-high GENIA hose. Patient will continue with walker while ambulating and standard hip precautions as well as abductor pillow while in bed. At her preop appointment hip kit was also recommended as well as elevated commode seat. Patient is aware that Silverlon dressing is waterproof and to remain on until follow-up. She has a follow-up appointment scheduled with our office 2 weeks postop. She will be discharged home with [facility]. She was instructed to contact the office if she has any questions or concerns or go to the emergency room with acute issues. Please see below discharge planning for further detailed instructions. (2) Nausea: Hospitalist consulted. Treated with zofran, pepcid, and maalox inhouse. Zofran sent to pharmacy on DC. Total Time Total Time Spent Total Time Spent (In Minutes): 20min Discharge Plan Discharge Items Patient Disposition: Home - Home Health Services Reason For Visit: Left Hip Osteoarthritis Discharge Diagnosis: Left Hip Osteoarthritis Activity: As commented below Lifting: None Bathing: Keep incision dry Bathing Comment: May shower tomorrow Sexual Activity: Wait until after follow-up appointment Exercise/Sports: Wait until after follow-up appointment Driving/Machine Use: No driving until cleared by global marketing specialist Weightbearing: Left weightbearing Weightbearing Comment: as tolerated with walker assistance Non-emergency contact: Primary Care Provider Call non-emergency contact if: you have any medication questions, your pain is not controlled, your temperature is above 101.5, your wound has increased drainage and your wound pain has increased Follow-up/Referrals: Hermelindo Sanchez MD [Physician] - 09/17/20 11:15 am Werner Wheatley MD [Primary Care Provider] - Diet: Regular Addtl Attending Provider Instructions: Post-operative Instructions Dear Patient and Family/Friends, Before you are discharged from the hospital, it is important to know what to expect when you get home after surgery. To that end, we have created this sheet of discharge instructions which covers many commonly asked questions. Make sure you go through this sheet in its entirety with your nurse before you are discharged. Please note that we will go over the specifics of your surgery and recovery when you return for your first post-operative visit. Sincerely, Dr. Sanchez Medications 1. Oxycodone 5 mg: take 1-2 tabs every 4-6 hours as needed for postop pain control. A prescription for 30 tabs will be sent to your pharmacy. 2. Diclofenac Sodium 75 mg: take 1 tab twice daily for 30 days post operatively for pain and inflammation relief. A prescription for this medication will be sent to your pharmacy with 1 refill. 3. Aspirin 81 mg: take 1 tab twice daily for 30 days post operatively for blood clot prevention. Please purchase this medication. 4. Extra Strength Tylenol 500 mg: take 2 tabs every 6-8 hour as needed for additional pain relief. Please purchase. Pain Expect to be in a fair amount of pain after surgery. Remember, our goal is not to eliminate your pain, but to make it tolerable. It is a good idea to stay ahead of your pain by taking the medications you were prescribed once you get home. Typically, the pain starts improving 3-7 days after surgery. You should start weaning off the narcotic pain medication (oxycodone, hydrocodone, hydromorphone, morphine) as soon as your pain improves. Please call our office if your pain is not adequately controlled. Ice Ice your operative site at least 5 times a day for 15-30 minutes at a time. Make sure you have a thin cloth between the ice or cooling unit and your skin to prevent rogers bite. This is especially important if you received a nerve block. Continue icing your operative site for the first 5-7 days after surgery, then as needed. Diet/Nausea/Vomiting Start by drinking clear liquids and eating crackers. If you can tolerate this, then you may resume your normal diet. If you feel nauseated or vomit, take Zofran/ondansetron (if prescribed). Please call our office if you have intractable nausea or vomiting, or, if after hours, you may go to the Emergency Room for help. Constipation Constipation is a common side effect of narcotic pain medication. If you have not had a bowel movement within 2 days after surgery, we recommend purchasing an over the counter laxative such as Milk of Magnesia, Dulcolax, or Miralax from a local pharmacy, and taking it as instructed. Call our clinic if any questions. Nerve block The anesthesia team sometimes places a nerve block to help with post-operative pain control. This results in significant numbness and inability to move the extremity. The nerve block usually wears off in 8-12 hours, but sometimes can last up to 24 hours. Please call our office if you are still unable to move your extremity after 24 hours, unless you received a pain pump to take home. Nerve blocks typically wear off quickly, so start taking pain medication as soon as you start feeling soreness near your surgical site. Weight bearing and Range of Motion. Weight bear as tolerated with walker. Please follow Standard Hip Precautions and use Abductor Pillow in bed. Physical therapy You will start with home health therapy to come to your home. Wound care and showering We will inspect your wound at your first post-operative visit, and may do a dressing change at that time. Most patients will be in a water-proof dressing that is removed 14 days after surgery. It is normal to see some dried blood on the dressing. Do not remove your dressing, paper strips or sutures yourself unless you are given permission. Showering is allowed the day after surgery. Do not scrub or remove any dressings. The wound should not be submerged underwater (i.e. in a bathtub or pool) until 4 weeks after surgery GENIA stockings If you were given white stockings, these are to be worn at all times except to shower (on both legs) for the first 2 weeks after surgery. Driving You may not drive while taking narcotic pain medication or while in a cast, splint, sling or brace. You, the patient, need to make the final determination about when you are safe to drive, however, the earliest you may consider driving after surgery is below: Hand/Wrist/Elbow Surgery: 3 days Shoulder Surgery: 2 weeks Hip,/Knee/Ankle Surgery: 4 weeks Fracture repair: 6 weeks Return to Work Your return to work depends on what surgery was done and what type of work you do. Please bring any paperwork your employer needs completed to your first post-operative visit. Also, bring a description of your job duties, as this helps us to understand what risks you may face at work. Travel Avoid long distance travel (greater than 1 hour) in airplanes and cars for the first 6 weeks after surgery. If you must travel, you need to have a Doppler ultrasound done before you travel to rule out a blood clot in your legs. Follow-up You should have a follow-up appointment already scheduled 1-2 days after surgery. If not, please contact our office to make this appointment before you leave the hospital. When to call the office It is normal to have swelling and bruising in the limb that was operated on. This will improve with time. It is also normal to have fevers for the first 2 days after surgery. Reasons you should call your doctor include: Uncontrolled pain; Nausea, vomiting, or constipation that does not improve with medication; Fevers over 101.5, chills, sweats; Drainage or bleeding from the wound; Foul odor; Spreading areas of redness; Any other concerns Pending Studies at Discharge: No Stand-Alone Forms: [facility], Work/School Release, Smoking Cessation Medications and DC Order Prescriptions: New oxycodone 5 mg tablet 5 mg PO Q3H Qty: 30 RF: 0 diclofenac sodium 75 mg tablet,delayed release (DR/EC) 75 mg PO BID 30 Days Qty: 60 RF: 1 ondansetron HCl [Zofran] 4 mg tablet 4 mg PO Q6H PRN (Reason: nausea and vomiting) Qty: 10 RF: 0 Continued Claritin-D 12 Hour 5-120 mg Tablet Extended Release 12 Hr 1 tab PO QAM PRN (Reason: Allergic Symptoms) RF: 0 pregabalin [Lyrica] 75 mg Capsule 75 mg PO BID RF: 0 Inhaler Otc 1 inh inhalation HS PRN (Reason: Wheezing) RF: 0 calcium carbonate [Tums] 200 mg calcium (500 mg) Tablet,Chewable 400 mg PO HS PRN (Reason: Acid Reflux) RF: 0 Vitamin E Otc 1 cap PO QAM RF: 0 Discontinued Flamydol Rx 100 mg PO TID PRN (Reason: Pain) RF: 0 Matrix 1 tab PO TID PRN (Reason: Pain) RF: 0 Discharge Orders: Discharge Order (Routine); Ordered 09/06/20 Ordered By: Jen Hou/Other Patient Handouts: DVT Post Op Prevention, Hip Precautions Admission Data Admit Date/Time: 09/04/20 09:06 Attending Provider: Hermelindo Sanchez Admit Provider: Hermelindo Sanchez Primary Care Provider: Werner Wheatley Other Providers: [facility],Home Healthcare ; [facility] ; Dustin Lewis Other Interventions: Discharge Summary Assessment (RN) Last Done: 09/06/20 12:19
== END 2020-09-06 13:07 | disposition home health service (06) ==
LOC: 3W 05:19 → ASU 05:19

== ENCOUNTER 2021-12-10 06:23 | Observation (INO) ==
--- NOTE | 2021-11-24 09:15 | PAT Medication Instructions ---
Medication Instructions Date of Service November 24, 2021 Home Medications calcium carbonate 200 mg calcium (500 mg) chewable tablet (Tums) 400 mg PO HS PRN loratadine 5 mg-pseudoephedrine ER 120 mg tablet,extended release,12hr (Claritin-D 12 Hour) 1 tab PO QAM PRN pregabalin 75 mg capsule (Lyrica) 75 mg PO TID Avamys 1 spray intranasal TID Daflon 1,000 mg PO QAM acetaminophen 500 mg tablet 500 mg PO Q6H PRN diclofenac sodium 100 mg tablet,extended release 24 hr 100 mg PO QAM omeprazole 20 mg tablet,delayed release 20 mg PO DAILY PRN rivaroxaban 15 mg tablet (Xarelto) 15 mg PO QAM Continue as directed omeprazole 20 mg tablet,delayed release 20 mg PO DAILY PRN(if needed) ASK your surgeon for instructions diclofenac sodium 100 mg tablet,extended release 24 hr 100 mg PO QAM ASK your prescriber and surgeon rivaroxaban 15 mg tablet (Xarelto) 15 mg PO QAM(in order for spinal or epidural anesthesia, Xarelto needs to be stopped 72 hours/3 days before surgery. Please check if okay with doctor that prescribes this to you) STOP taking 2 weeks before surgery Daflon 1,000 mg PO QAM DO NOT take the morning of surgery loratadine 5 mg-pseudoephedrine ER 120 mg tablet,extended release,12hr (Claritin-D 12 Hour) 1 tab PO QAM PRN Take morning of surgery With a small sip of water, OTHERWISE NOTHING TO EAT OR DRINK AFTER MIDNIGHT: pregabalin 75 mg capsule (Lyrica) 75 mg PO TID Avamys 1 spray intranasal TID acetaminophen 500 mg tablet 500 mg PO Q6H PRN(if needed) Take evening before surgery calcium carbonate 200 mg calcium (500 mg) chewable tablet (Tums) 400 mg PO HS PRN(if needed) pregabalin 75 mg capsule (Lyrica) 75 mg PO TID Avamys 1 spray intranasal TID acetaminophen 500 mg tablet 500 mg PO Q6H PRN(if needed) Other Notes If you have any questions please call us at [phone] or [phone] or [phone] or [phone]
--- NOTE | 2021-11-25 15:31 | Anesthesiology Consultation ---
Date of Service November 25, 2021 Assessment & Plan (1) Encounter for pre-operative examination: - CXR to be faxed to PCP for continuity of care. - awaiting 11/25/21 EKG from [facility]. - Case regarding systolic murmur discussed with Dr. Ling who advised given good functional status and previous echocardiogram, no further evaluation or testing needed. - Outpatient joint assessment: Patient is currently scheduled for inpatient pathway. If re-evaluated pending system levels during current pandemic/surgeon requests outpatient pathway, patient is not recommended candidate for outpatient joint program from anesthesia standpoint. Chart Review Chart Review: Pending: Refer to Additional Notes / Consult section and Patient seen in Pre Admission Testing Teaching & Discussion Pre-Anesthesia Teaching/Discussion Notes: Instructed NPO after midnight before surgery, except medications with 15 cc of water. Medication instructions provided according to the PAT guidelines. History Surgery Operation Date: 12/10/21 08:15 Proposed Procedures p Right Total Hip Arthroplasty - Hermelindo Sanchez MD Height/Weight Height: 5 ft 7.5 in Weight: 96.4 kg Allergies Allergy/AdvReac Type Severity Reaction Status Date / Time Sulfa (Sulfonamide Allergy Intermediate Nausea Verified 11/23/21 09:56 Antibiotics) Medications Home Medications Medication Instructions Recorded Confirmed Last Taken calcium carbonate 200 mg calcium 400 mg PO HS PRN Acid Reflux 08/15/20 11/23/21 09/01/20 21:00 (500 mg) chewable tablet (Tums) loratadine 5 mg-pseudoephedrine ER 1 tab PO QAM PRN Allergic Symptoms 08/15/20 11/23/21 09/03/20 09:00 120 mg tablet,extended release,12hr (Claritin-D 12 Hour) pregabalin 75 mg capsule (Lyrica) 75 mg PO TID 08/15/20 11/23/21 09/04/20 04:00 Avamys 1 spray intranasal TID 11/23/21 11/23/21 Unknown Daflon 1,000 mg PO QAM 11/23/21 11/23/21 Unknown acetaminophen 500 mg tablet 500 mg PO Q6H PRN Pain 11/23/21 11/23/21 Unknown diclofenac sodium 100 mg 100 mg PO QAM 11/23/21 11/23/21 Unknown tablet,extended release 24 hr omeprazole 20 mg tablet,delayed 20 mg PO DAILY PRN Acid Reflux 11/23/21 11/23/21 Unknown release rivaroxaban 15 mg tablet (Xarelto) 15 mg PO QAM 11/23/21 11/23/21 Unknown Past Medical History Medical History (Updated 11/26/21 @ 15:11 by Carlita De La Cruz PA-C) Diverticular disease GERD (gastroesophageal reflux disease) occasional, controlled and stable per pt History of blood transfusion 1986 History of COVID-19 x2 (most recent 04/2021--mild symptoms > not hospitalized> resolved) History of deep vein thrombosis (DVT) of lower extremity LLE ~12/2020 (unknown etiology), on Xarelto Neuropathy hands, feet Sleep apnea pt not currently treating Patient denies h/o stroke, seizures, heart attack, heart failure, DM, or HTN. Exercise / Class Metabolic Activity II 4-5 Yardwork/Stairs/Walk up hill (denies CP or SOB with 1 FOS) Past Family History Family History Grandmother (Maternal) Family history of diabetes mellitus Sister Family history of diabetes mellitus Brother Family history of reaction to anesthesia during heart surgery 2020 Past Surgical History Surgical History History of appendectomy History of cholecystectomy History of colonoscopy History of esophagogastroduodenoscopy (EGD) History of hysterectomy History of total left hip arthroplasty Left DIVINA (09/04/20): SAB + PNB at [facility]. No issues noted per post-op anesthesia progress note. Pilonidal cyst Removal Past Anesthesia History No Hx of Anesthesia Complications and No Family Hx of Anesthesia Complications History of PONV History of PONV (per pt after hysterectomy, felt to be d/t sulfa antibiotic reaction) and Hx of Motion Sickness Social History Smoking Status: Never smoker Do You Dip or Chew Tobacco: No Hx Alcohol Use: Yes Alcohol type: beer and wine alcohol intake frequency: 0-2 drinks per day Hx Substance Use: No substance use type: does not use Review of Systems Patient denies chest pain, shortness of breath, dyspnea on exertion, fever, chills, cough, wheezing, dizziness, lightheadedness, or palpitations. Physical Exam Vital Signs Vitals BP 111/77 P 64 SP02 96% on RA RESP 18 Physical Full cervical extension range of motion without pain TMD 3.5 finger breadths Dentition: intact, implant front upper tooth and lower right back; denies chipped or loose teeth, caps/crowns, bridges Lungs: normal respiratory effort. Clear throughout to auscultation, no adventitious breath sounds Cardiac: regular rate and rhythm, grade 2/6 systolic murmur noted Carotid arteries: negative bruit bilat Lab Results Anesthesia Preop Results Results Anesthesia Widget: WBC 5.96 K/ul (4.8-10.8) 11/25/21 Hgb 13.2 g/dl (12.0-16.0) 11/25/21 Hct 40.3 % (34.1-44.9) 11/25/21 Plt 231 K/uL (130-400) 11/25/21 Na 140 mmol/L (136-145) 11/25/21 K 3.7 mmol/L (3.5-5.1) 11/25/21 Cl 104 mmol/L (98-107) 11/25/21 CO2 28 mmol/L (21-32) 11/25/21 BUN 22 mg/dl (6-23) 11/25/21 Creat 0.78 mg/dl (0.6-1.2) 11/25/21 Glucose Level 104 mg/dl (70-99(Fasting)) H 11/25/21 PT 11.2 Seconds (9.0-12.0) 11/25/21 PTT 31.2 Seconds (21.0-31.0) H 11/25/21 INR 1.1 (0.9-1.1) 11/25/21 HA1c 5.4 % (4.5-5.6) 11/25/21 Urine Color Yellow 11/25/21 Urine Appearance Clear (Clear) 11/25/21 Urine pH 6.0 (4.5-7.5) 11/25/21 Urine Specific [place] 1.027 (1.000-1.030) 11/25/21 Urine Protein Negative (Negative) 11/25/21 Urine Glucose (UA) Negative (Negative) 11/25/21 Urine Ketones Trace (Negative) H 11/25/21 Urine Blood Negative (Negative) 11/25/21 Urine Nitrite Negative (Negative) 11/25/21 Urine Bilirubin Negative (Negative) 11/25/21 Urine Urobilinogen Negative (Negative) 11/25/21 Urine Leukocyte Esterase Negative (Negative) 11/25/21 Blood Type B Positive 11/25/21 Antibody Screen NEGATIVE 11/25/21 Testing Electrocardiogram Date: 11/25/21 Chest X-Ray Date: 11/25/21 A 14 mm nodular density overlying the T9 vertebral body on the lateral view only. This is likely due to overlying artifact or a vertebral body osteophyte. However, in the absence of prior studies a dedicated chest CT is recommended for confirmation. This report was called/faxed to the referring physician following dictation. Echocardiogram Date: 11/03/20 EF 65-70% No regional wall motion abnormalities Mild cLVH Mild LA dilation No significant valvular abnormalities Normal estimated RVSP Type 2 diastolic dysfunction COVID-19 Risk Screen Screening Information COVID-19 Screen Date: 11/25/21 Exposure 21 Days Family/Household +COVID Last 21 Days: No Exposure 10 Days Any COVID Exposure Last 10 Days: No Symptoms Last 10 Days Experienced COVID Sx Last 10 Days: No + COVID 0-90 Days COVID + in Last 0-90 Days: No
[~2021-12-10 06:23] MED LIST: ACETAMINOPHEN 500 MG TAB PO SCH; FAMOTIDINE 20 MG TAB PO SCH; LR 500ML BOLUS, THEN 15ML/HR IV SCH; LR 60ML/HR IV SCH; ROPIVACAINE 0.5% HCL/PF 150 MG, BUPIVACAINE 0.75% MPF 20 ML, EPINEPHrine 0.15 MG, Ketor... INFIL SCH; Scopolamine 1 MG TDSY TD SCH; TRANEXAMIC ACID 1,000 MG **IV Intra-op IV SCH; TRANEXAMIC ACID 1,000 MG **IV Pre-op IV SCH; ceFAZolin 2000MG 2,000 MG/15 ML SYR IV SCH; dexAMETHasone 4 MG TAB PO SCH; traMADol HCL 50 MG TABLET PO SCH
[2021-12-10] MEDS ORDERED: BUPIVACAINE 0.5 % 5 MG/1 ML PF 10ML VIAL ONE (06:39)
--- NOTE | 2021-12-10 07:29 | History & Physical Bridge Note ---
Date of Service December 10, 2021 History & Physical Bridge Note I have examined the patient, reviewed the History & Physical and in the interval since the performance of the History & Physical I have noted the following changes of clinical significance: no changes noted
[2021-12-10] MEDS ORDERED: MIDAZOLAM HCL 1 MG/ML 2ML VIAL ONE (07:53)
[2021-12-10] MEDS ORDERED: fentaNYL citrate 100 MCG/2 ML VIAL ONE (07:53)
[2021-12-10] MEDS ORDERED: PROPOFOL IV EMULSION 10 MG/ML 20 ML VIAL IV ONE ×3 (07:54→09:10)
[2021-12-10] MEDS ORDERED: ORTHO JOINT ANESTHETIC ONE (08:15)
[2021-12-10] MEDS ORDERED: ePHEDrine sulfate 50 MG/ML AMP IV PRN (08:18)
[2021-12-10] MEDS ORDERED: FLUMAZENIL 0.1 MG/1 ML 10 ML VIAL IV PRN (08:18)
[2021-12-10] MEDS ORDERED: ATROPINE SULFATE 0.1 MG/ML 10ML SYR IV PRN (08:18)
[2021-12-10] MEDS ORDERED: NALOXONE HCL 0.4 MG/1 ML VIAL/CARP IV PRN ×2 (08:18→10:12)
[2021-12-10] MEDS ORDERED: fentaNYL citrate 100 MCG/2 ML VIAL IV PRN (08:18)
[2021-12-10] MEDS ORDERED: ONDANSETRON INJ 2 MG/ML 2 ML VIAL IV PRN ×2 (08:18→10:12)
[2021-12-10] MEDS ORDERED: PROMETHAZINE HCL 12.5 MG in SODIUM CHLORIDE 0.9% 50 ML IV PRN (08:18)
[2021-12-10] MEDS ORDERED: ONDANSETRON INJ 2 MG/ML 2 ML VIAL ONE (09:06)
[2021-12-10] MEDS ORDERED: DEXAMETHASONE SOD INJ 4 MG/ML VIAL ONE (09:06)
--- NOTE | 2021-12-10 10:05 | Operative Report ---
Post Operative Report Pre & Post Diagnosis Operation Date: 12/10/21 08:15 Pre-Op Diagnosis: Right Hip Osteoarthritis Post-Op Diagnosis: Right Hip Osteoarthritis I identified the patient and participated in the time-out.: Yes Procedure Operation Date: 12/10/21 08:15 Actual Procedures p Right Total Hip Arthroplasty(Right) - Hermelindo Sanchez MD Surgeon Hermelindo Sanchez MD International Marketing Coordinator CARLI Vizcaino PA-C. No resident or fellow was available to assist. Estimated Blood Loss 200 Findings Consistent with Post-Op Diagnosis Specimens Right femoral head Anesthesia Type Spinal MAC Complications none Disposition Disposition: Recovery Room Indications 66-year-old female, whose family is local here to [facility] but she lives in [facility], is status post a left total hip arthroplasty by myself approximately 1 year ago. She is done well with the surgery and desires to have the same operation performed for her right hip where she has end-stage osteoarthritis [id number] disease. I had a long discussion with her about the risks and b enefits of surgery, alternatives, and expected outcomes. After reviewing all these she elected proceed with surgery. All questions were answered. Informed consent was signed. Description of Procedure Patient was identified in the preoperative holding area and the surgical site, right hip, was marked. A spinal anesthetic was placed, then the patient was brought back to the main operating room, placed in the operating table and moved into the lateral decubitus position. Axillary roll was placed. All bony prominences were padded. Perioperative antibiotics and tranexamic acid 1 gram IV were administered. Operative extremity was prepped and draped in the normal sterile fashion. Prior to incision a multidisciplinary timeout was called. All in the room were in agreement. We began by making an incision for a posterior approach to the hip. We dissected down through subcutaneous tissues to the level of the fascia. The fascia was incised in line with the incision. Charnley bow was placed. The trochanteric bursa was excised. The piriformis and short external rotators were dissected off the posterior aspect of the hip. A box cut was made in the capsule. The femoral head was dislocated. The femoral neck cut was made at our preoperative template. The acetabulum was then exposed. The labrum was sharply excised. Contents of the cotyloid fossa were removed with electrocautery. We then began reaming at a size 8 mm less than our preoperative template. We reamed up by [address] the way up to a size 54 mm cup. This gave us good bleeding cancellus bone circumferentially. The acetabulum was then irrigated out and dried. The real [place] Gription cup was then impacted down into position with approximately 45 degrees of lateral opening and 25 degrees of anteversion. A single cancellous bone screw was placed up into the ilium. Excellent fixation was obtained. A trial liner for a 36 mm femoral head was then placed. Next we turned our attention to the femur. The lateral neck was removed with a box osteotome. Intramedullary guide was used followed by the lateralizing reamer. We then reamed up to a size 4 [place] stem. We then broached all the way up to a size 4 maintaining the stem in approximately 15 degrees of femoral anteversion. We began trialing with a high offset neck and a +5 head. Hip was reduced. Leg lengths were symmetric. The hip was stable in extension and external rotation, and stable in the sleeper position. At 90 degrees of hip flexion the hip could be internally rotated 65 degrees before levering out of the cup. I was very happy with the stability exam. Therefore the hip was dislocated and the femoral trial was removed. The acetabulum was re-exposed, and the trial liner was removed. An Altrx polyethylene liner for a 36 mm femoral head was then impacted into the shell. The locking mechanism was checked to ensure that it had engaged which it had. The femur was re-exposed. The femoral canal was irrigated and dried. The real size 4 high offset [place] femoral stem was opened up. This was impacted down into position. It sat about 3 mm above the level of the femoral trial. I then re-trialed with a +1.5 offset head and confirmed leg lengths and stability exam remained excellent which it was. Therefore, the 36 mm ceramic femoral head with a +1.5 mm offset was opened up and gently impacted down onto the trunnion. The hip was atraumatically reduced. Another 1 gram of IV tranexamic acid was started prior to closure. The wound was irrigated out with sterile Betadine solution. The periarticular injection cocktail was then placed. The short external rotators, piriformis, and posterior capsule were repaired through drill holes in the greater trochanter using #2 Vicryl. The fascia was run with a looped #1 PDS. The subcutaneous layer was closed with #1 PDS. The dermal layer was closed with 2-0 Vicryl. Zip line was used for the skin followed by a Silverlon dressing. A compressive dressing was then placed. The patient was then rolled supine. Leg lengths were rechecked and were symmetric. An abduction pillow was placed. Sedation was lifted and the patient was transferred to recovery room in stable condition. Summary of implants: Depuy [place] Gription Acetabular Shell Sector Cup, 54 mm outer diameter [place] Cancellous bone screw, 6.5 x 40 mm [place] Altrx Polyethylene Acetabular Liner, Neutral, with a 36 mm inner diameter DePuy [place] Femoral stem with [place], 12/14 taper, size 4 high offset 36 mm ceramic femoral head with +1.5 mm offset Postoperative course: Patient will be admitted to the hospital from the recovery room. Patient will be weightbearing as tolerated with posterior hip precautions. We will do Xarelto for DVT prophylaxis since the patient did develop a DVT following her left total hip arthroplasty. I attest to the content of the Intraoperative Record and any orders documented therein. Any exceptions are noted below.
[2021-12-10] MEDS ORDERED: diphenhydrAMINE 50 MG/ML VIAL IV PRN (10:12)
[2021-12-10] MEDS ORDERED: METOCLOPRAMIDE HCL INJ 5 MG/ML 2 ML VIAL IV PRN (10:12)
[2021-12-10] MEDS ORDERED: bisacodyL 10 MG SUPP PR PRN (10:12)
[2021-12-10] MEDS ORDERED: ALUMINUM/MAGNESIUM SUSP 30 ML UDC PO PRN (10:12)
[2021-12-10] MEDS ORDERED: HYDROmorphone INJ 0.5 MG/0.5 ML SYR IV PRN (10:12)
[2021-12-10] MEDS ORDERED: MAGNESIUM HYDROXIDE SUSP 30 ML UDC PO PRN (10:12)
--- NOTE | 2021-12-10 10:12 | Operative Report ---
Post Operative Report Pre & Post Diagnosis Operation Date: 12/10/21 08:15 Pre-Op Diagnosis: Right Hip Osteoarthritis Post-Op Diagnosis: Right Hip Osteoarthritis I identified the patient and participated in the time-out.: Yes Procedure Operation Date: 12/10/21 08:15 Actual Procedures p Right Total Hip Arthroplasty(Right) - Hermelindo Sanchez MD Surgeon Hermelindo Sanchez MD Occupational Health Coordinator CARLI Vizcaino PA-C. No resident or fellow was available to assist. Estimated Blood Loss 200 Findings Consistent with Post-Op Diagnosis Specimens femoral head Description of Procedure I was present during the entire case assisting with positioning, prepping, draping, wound retraction, wound closure, dressing and abduction pillow placement. No fellow present. Please see Dr. Sanchez procedure note for specifics of the case. I attest to the content of the Intraoperative Record and any orders documented therein. Any exceptions are noted below.
[2021-12-10] MEDS ORDERED: SODIUM CHLORIDE 0.9% 1000ML 1,000 ML IV SCH (10:15)
[2021-12-10] MEDS ORDERED: CALCIUM CARBONATE 500 MG CHEWABLE TAB PO PRN (10:17)
[2021-12-10] MEDS ORDERED: ACETAMINOPHEN 500 MG TAB PO PRN (10:17)
[2021-12-10] MEDS ORDERED: PANTOprazole 40 MG TAB PO PRN (10:51)
--- NOTE | 2021-12-10 11:26 | Anesthesiology Progress Note ---
Date of Service December 10, 2021 Anesthesia Post Procedure Vital Signs Vital Signs: Temp Pulse Pulse Resp BP Pulse Ox O2 Del Method 12/10/21 11:20 57 L 14 105/65 96 Nasal Cannula 12/10/21 11:10 51 L 13 109/65 97 Nasal Cannula 12/10/21 11:00 36.3 C L 63 22 120/75 99 Nasal Cannula 12/10/21 10:50 53 L 18 100/71 95 Nasal Cannula 12/10/21 10:40 55 L 17 106/67 96 Nasal Cannula 12/10/21 10:30 67 18 94/65 L 93 Nasal Cannula 12/10/21 10:20 58 L 17 106/63 93 Room Air 12/10/21 10:12 36.1 C L 61 18 103/66 94 Room Air 12/10/21 06:50 36.9 C 72 20 159/102 H 95 Room Air O2 Flow Rate 12/10/21 11:20 2 12/10/21 11:10 2 12/10/21 11:00 2 12/10/21 10:50 2 12/10/21 10:40 2 12/10/21 10:30 2 12/10/21 10:20 12/10/21 10:12 12/10/21 06:50 Transfer of Care Handoff Completed per policy Notes Mental Status: alert / awake / arousable Patient Amnestic to Procedure: Yes Nausea / Vomiting: adequately controlled Pain: adequately controlled Airway Patency, RR, SpO2: stable & adequate BP & HR: stable & adequate Hydration State: stable & adequate Neuraxial Anesthesia: was administered and sensory block is resolving Anesthetic Complications: no major complications apparent
--- NOTE | 2021-12-10 12:00 | XRay Report ---
XR pelvis 1-2V routine CLINICAL HISTORY: Postoperative evaluation. COMPARISON: Pelvis radiograph November 25, 2021. FINDINGS: Alignment of the total right hip arthroplasty is anatomic. There is no periprosthetic frac ture or unexpected radiopaque foreign body. Acetabular screw is noted. Left hip arthroplasty is noted . IMPRESSION: Expected findings following total right hip arthroplasty. ACT 112: Negative or not required by law. Electronically signed by: Peña Brown M.D. 12/10/2021 11:58 AM
[2021-12-10] MEDS: KETOROLAC TROMETHAMINE 15 MG/ML VIAL IV SCH ×3 (12:31→23:24)
[2021-12-10] MEDS ORDERED: LORATADINE 10 MG TAB PO PRN (13:23)
[2021-12-10] MEDS: ACETAMINOPHEN 500 MG TAB PO SCH ×2 (13:40→20:41)
[2021-12-10] MEDS: PREGABALIN 75 MG CAP PO SCH ×2 (13:40→20:41)
[2021-12-10] MEDS: Scopolamine CHECK PATCH PLACEMENT SCH ×2 (15:19→23:24)
[2021-12-10] MEDS: ceFAZolin 2000MG 2,000 MG/15 ML SYR IV SCH ×2 (15:23→23:24)
[2021-12-10] MEDS ORDERED: TRANEXAMIC ACID / 0.7% NACL 1,000 MG/100 ML BAG IV SCH (16:15)
[2021-12-10] MEDS: oxyCODONE HCL IR 5 MG TAB (IMMEDIATE RELEASE) PO PRN (20:40)
[2021-12-10] MEDS: DOCUSATE SODIUM 100 MG CAP PO SCH (20:41)
[2021-12-10] MEDS ORDERED: SENNA 8.6 MG TAB PO SCH (21:00)
[2021-12-11] MEDS: ACETAMINOPHEN 500 MG TAB PO SCH (05:59)
[2021-12-11] MEDS: KETOROLAC TROMETHAMINE 15 MG/ML VIAL IV SCH (05:59)
[2021-12-11] MEDS ORDERED: dexAMETHasone 4 MG TAB PO SCH (08:00)
[2021-12-11] MEDS: DOCUSATE SODIUM 100 MG CAP PO SCH (08:38)
[2021-12-11] MEDS: PREGABALIN 75 MG CAP PO SCH (08:38)
[2021-12-11] MEDS: Scopolamine CHECK PATCH PLACEMENT SCH (08:38)
[2021-12-11] MEDS ORDERED: DAFLON PO SCH (09:00)
[2021-12-11] MEDS ORDERED: FLUTICASONE PROPIONATE NA SPR 16 GM BTL SCH (09:00)
[2021-12-11] MEDS ORDERED: RIVAROXABAN 15 MG TAB PO SCH ×2 (09:00)
[2021-12-11] MEDS ORDERED: MULTIVITAMIN TAB PO SCH (09:00)
--- NOTE | 2021-12-11 10:00 | Orthopedic Progress Note ---
Date of Service December 11, 2021 Assessment & Plan (1) S/P total hip arthroplasty: Plan: PT/OT Total hip precautions reviewed Weightbearing as tolerated with walker assistance Keep Silverlon dressing in place Ice with easy wrap Pain control with p.o. medication DVT prophylaxis with Xarelto and GENIA stockings Abduction pillow use x6 weeks postoperatively Plan is to discharge home today with in-home physical therapy Follow-up at [facility] orthopedics as previously scheduled With questions contact her clinic at [phone] Admission and Anticipated Discharge Date Admission Date: December 10, 2021 Subjective Patient is 66-year-old female is day 1 status post right total hip arthroplasty. Patient is doing very well. She is ambulating with the aid of her walker without any assistance or difficulty. She states that her pain is well controlled with the p.o. pain medication she is receiving. She denies any numbness or tingling in her right lower extremity. Patient denies chest pain, shortness of breath, fever, chills, sweats, nausea, vomiting or any difficulty voiding. Review of Systems Review of Systems: All systems reviewed & are unremarkable except as noted in Subjective Physical Exam Physical Exam: Right hip: Outer dressing was removed. Silverlon is clean dry and intact and left in place. Patient is easily able to perform a straight leg raise test and actively dorsi and plantarflex her foot. Her quad strength is 3+ out of 5. She tolerates light passive hip flexion near 90 degrees. She has no pain with light passive internal or external hip rotation. Logroll test is negative. Patient is neurovascularly intact. Results & Data ([facility]) Vital Signs (Past 12 Hours) Vital Signs Temp Pulse Resp BP BP Pulse Ox O2 Del Method 12/11/21 08:00 36.7 C 66 20 120/70 95 Room Air 12/11/21 04:30 36.6 C 75 18 102/66 97 Room Air Diagnostic Findings Laboratory Results SARS-CoV-2, RNA, NAAT NEGATIVE (NEGATIVE) 12/10/21 Unknown Impressions Pelvis X-Ray 12/10/21 10:12 XR pelvis 1-2V routine CLINICAL HISTORY: Postoperative evaluation. COMPARISON: Pelvis radiograph November 25, 2021. FINDINGS: Alignment of the total right hip arthroplasty is anatomic. There is no periprosthetic fracture or unexpected radiopaque foreign body. Acetabular screw is noted. Left hip arthroplasty is noted. IMPRESSION: Expected findings following total right hip arthroplasty. ACT 112: Negative or not required by law. Electronically signed by: Peña Brown M.D. 12/10/2021 11:58 AM
[2021-12-11 10:35] LABS: Basophils # (auto) 0.01 K/uL (0-0.2); Basophils % (auto) 0.1 %; Eosinophils # (auto) 0.01 K/uL (0-0.50); Eosinophils % (auto) 0.1 %; Hematocrit (blood only) 38.3 % (34.1-44.9); Hemoglobin 12.5 g/dl (12.0-16.0); Immature Granulocytes # (auto) 0.04 K/uL (0.00-0.02); Immature Granulocytes % (auto) 0.3 %; Lymphocytes # (auto) 1.32 K/uL (1.2-3.4); Mean Corpuscular Hemoglobin 30.8 pg (25.0-34.0); Mean Corpuscular Hgb Conc 32.6 g/dL (32.0-36.0); Mean Corpuscular Volume 94.3 fL (80.0-100.0); Monocytes # (auto) 0.78 K/uL (0.24-0.82); Monocytes % (auto) 6.5 %; Neutrophils # (auto) 9.88 K/uL (1.4-6.5); Platelet Count 224 K/uL (130-400); RDW Coefficient of Variation 13.1 % (11.5-14.5); RDW Standard Deviation 44.9 fL (36.4-46.3); Red Blood Count 4.06 M/uL (3.93-5.22); White Blood Count 12.04 K/ul (4.8-10.8)
--- NOTE | 2021-12-11 10:40 | Discharge Summary ---
Date of Service December 11, 2021 Admission HPI Per Admitting Provider This 65-year-old female presents the clinic today for preoperative history and physical. Patient states that the pain has been ongoing for long time however during the last year pain intensified to the point that it started interfering with her activities of daily living and ambulation. She started to admit using a walker lately due to that. She recently had her left hip replaced and is now using no assistive device. Since surgery her left hip has been doing well and now her right hip has been bothering her. She would like to proceed with total hip arthroplasty. Aggravating activities include walking, going up and down steps. Sitting or standing for any length of time. She does have stiffness in her right hip. She denies any new or known injury. She states is just progressively worsened over the last few months. She also resides in [facility] and would like to get her hip done while she is here. She will return to [facility] after the hip is replaced. She denies any numbness or tingling down her leg. She has not had any previous cortisone injections or viscosupplementation. She does take occasional Tylenol but is unable to take anti-inflammatories due to her prescription for Xarelto. Postoperatively she did develop a left lower extremity DVT and has been on Xarelto ever since. She does travel a lot and apparently her [facility] and the doctor told her that could be the safest to just stay on it Admission Exam Per Admitting Provider General: Well-dressed, well-nourished. Normal mood and affect. Alert and oriented x3. HEENT: Head: Atraumatic, normocephalic. Eyes: Extraocular static, pupils equal round active light, sclera normal. Ears: Ears grossly normal, TMs are clear normal light reflex. Nose: Nares are patent bilaterally. Throat: Oropharynx clear mucous membranes moist good dentition uvula midline. Neck: Supple, no lymphadenopathy, nontender palpation, full range of motion. Cardiac: Regular rate and rhythm, normal S1, S2. murmur heard at right 2nd intercostal space, no rubs or gallops appreciated. Lungs: Clear to auscultation bilaterally. No adventitious sounds. No accessory muscle use. Abdomen: Soft, nontender, nondistended, normal bowel sounds heard in all 4 quadrants. Extremities: Right hip exam shows the patient's range of motion to be limited by pain. She can flex up to about 90 degrees, external rotation of 35 degrees, and internal rotation of 5 degrees. Positive AIMEE test. Positive impingement test. Positive Stinchfield test. She is distally neurovascularly intact with a palpable dorsalis pedis pulse. Difficult for me to palpate her posterior tibial pulse. Toes are warm and well perfused. Principal Diagnosis Right Hip Osteoarthritis Discharge Exam Right hip: Outer dressing was removed. Silverlon is clean dry and intact and left in place. Patient is easily able to perform a straight leg raise test and actively dorsi and plantarflex her foot. Her quad strength is 3+ out of 5. She tolerates light passive hip flexion near 90 degrees. She has no pain with light passive internal or external hip rotation. Logroll test is negative. Patient is neurovascularly intact. Discharge Data Allergies Allergy/AdvReac Type Severity Reaction Status Date / Time Sulfa (Sulfonamide Allergy Intermediate Nausea Verified 12/10/21 06:44 Antibiotics) Procedures Performed Operation Date: 12/10/21 08:15 Actual Procedures p Right Total Hip Arthroplasty(Right) - Hermelindo Sanchez MD Hospital Course (1) S/P total hip arthroplasty: Patient had an uneventful overnight stay following Right Total hip arthroplasty. She is planning on discharge today. She will be in [place] over the weekend and then going home to the [facility], where she will do her inhome PT. PT/OT Total hip precautions reviewed Weightbearing as tolerated with walker assistance Keep Silverlon dressing in place Ice with easy wrap Pain control with p.o. medication DVT prophylaxis with Xarelto and GENIA stockings Abduction pillow use x6 weeks postoperatively Plan is to discharge home today with in-home physical therapy Follow-up at [facility] orthopedics as previously scheduled With questions contact her clinic at [phone] Total Time Total Time Spent Total Time Spent (In Minutes): 20 mins Discharge Plan Discharge Items Patient Disposition: Home - Home Health Services Reason For Visit: Right Hip Osteoarthritis Discharge Diagnosis: Right Hip Osteoarthritis Activity: As commented below Lifting: None Bathing: Keep incision dry Bathing Comment: May shower tomorrow Sexual Activity: Wait until after follow-up appointment Exercise/Sports: Wait until after follow-up appointment Driving/Machine Use: No driving until cleared by resource recovery specialist Weightbearing: Right weightbearing Weightbearing Comment: as tolerated with walker assistance Non-emergency contact: Surgeon Call non-emergency contact if: you have any medication questions, your pain is not controlled, your temperature is above 101.5, your wound has increased drainage and your wound pain has increased Follow-up/Referrals: Werner Wheatley MD [Primary Care Provider] - Diet: Regular Addtl Attending Provider Instructions: Post-operative Instructions Dear Patient and Family/Friends, Before you are discharged from the hospital, it is important to know what to expect when you get home after surgery. To that end, we have created this sheet of discharge instructions which covers many commonly asked questions. Make sure you go through this sheet in its entirety with your nurse before you are discharged. Please note that we will go over the specifics of your surgery and recovery when you return for your first post-operative visit. Sincerely, Dr. Sanchez Medications 1. Xarelto 15mg: Resume your dailiy dose of this medication for blood clot prevention. 2. Diclofenac Sodium 75: Resume your daily regimen. If you need a refill contact our office. 3. Oxycodone 5 mg: take 1-2 tabs every 4-6 hours for pain control. A prescription for this will be sent to your pharmacy. 4. Extra Strength Tylenol 500 mg: take 2 tabs every 6-8 hour as needed for additional pain relief. Please purchase. Pain Expect to be in a fair amount of pain after surgery. Remember, our goal is not to eliminate your pain, but to make it tolerable. It is a good idea to stay ahead of your pain by taking the medications you were prescribed once you get home. Typically, the pain starts improving 3-7 days after surgery. You should start weaning off the narcotic pain medication (oxycodone, hydrocodone, hydromorphone, morphine) as soon as your pain improves. Please call our office if your pain is not adequately controlled. Ice Ice your operative site at least 5 times a day for 15-30 minutes at a time. Make sure you have a thin cloth between the ice or cooling unit and your skin to prevent rogers bite. This is especially important if you received a nerve block. Continue icing your operative site for the first 5-7 days after surgery, then as needed. Diet/Nausea/Vomiting Start by drinking clear liquids and eating crackers. If you can tolerate this, then you may resume your normal diet. If you feel nauseated or vomit, take Zofran/ondansetron (if prescribed). Please call our office if you have intractable nausea or vomiting, or, if after hours, you may go to the Emergency Room for help. Constipation Constipation is a common side effect of narcotic pain medication. If you have not had a bowel movement within 2 days after surgery, we recommend purchasing an over the counter laxative such as Milk of Magnesia, Dulcolax, or Miralax from a local pharmacy, and taking it as instructed. Call our clinic if any questions. Nerve block The anesthesia team sometimes places a nerve block to help with post-operative pain control. This results in significant numbness and inability to move the extremity. The nerve block usually wears off in 8-12 hours, but sometimes can last up to 24 hours. Please call our office if you are still unable to move your extremity after 24 hours, unless you received a pain pump to take home. Nerve blocks typically wear off quickly, so start taking pain medication as soon as you start feeling soreness near your surgical site. Weight bearing and Range of Motion. Do not bear any weight through your operative extremity immediately after surgery. If you had upper extremity surgery, do not lift anything with that arm. If you are in a knee brace, keep it locked in place until your follow-up. We will discuss your weight bearing, range of motion, and lifting restrictions in detail at your first post-operative appointment. Continuous Passive Motion (CPM) Machine If you were prescribed a CPM machine, it will start after your first post- operative appointment, at which time we will give you instructions on the range of motion settings and duration of treatment Physical therapy You will be given a prescription for physical therapy or occupational therapy at your first post-operative appointment. Typically, patients start therapy within 1 week of surgery Wound care and showering We will inspect your wound at your first post-operative visit, and may do a dressing change at that time. Most patients will be in a water-proof dressing that is removed 14 days after surgery. It is normal to see some dried blood on the dressing. Do not remove your dressing, paper strips or sutures yourself unless you are given permission. Showering is allowed the day after surgery. Do not scrub or remove any dressings. The wound should not be submerged underwater (i.e. in a bathtub or pool) until 4 weeks after surgery GENIA stockings If you were given white stockings, these are to be worn at all times except to shower (on both legs) for the first 2 weeks after surgery. Driving You may not drive while taking narcotic pain medication or while in a cast, splint, sling or brace. You, the patient, need to make the final determination about when you are safe to drive, however, the earliest you may consider driving after surgery is below: Hand/Wrist/Elbow Surgery: 3 days Shoulder Surgery: 2 weeks Hip,/Knee/Ankle Surgery: 4 weeks Fracture repair: 6 weeks Return to Work Your return to work depends on what surgery was done and what type of work you do. Please bring any paperwork your employer needs completed to your first post-operative visit. Also, bring a description of your job duties, as this helps us to understand what risks you may face at work. Travel Avoid long distance travel (greater than 1 hour) in airplanes and cars for the first 6 weeks after surgery. If you must travel, you need to have a Doppler ultrasound done before you travel to rule out a blood clot in your legs. Follow-up You should have a follow-up appointment already scheduled 1-2 days after surgery. If not, please contact our office to make this appointment before you leave the hospital. When to call the office It is normal to have swelling and bruising in the limb that was operated on. This will improve with time. It is also normal to have fevers for the first 2 days after surgery. Reasons you should call your doctor include: Uncontrolled pain; Nausea, vomiting, or constipation that does not improve with medication; Fevers over 101.5, chills, sweats; Drainage or bleeding from the wound; Foul odor; Spreading areas of redness; Any other concerns Pending Studies at Discharge: No Stand-Alone Forms: My [facility] Medications and DC Order Prescriptions: New oxycodone 5 mg tablet 5 mg PO Q4H Qty: 28 0RF Continued Claritin-D 12 Hour 5-120 mg Tablet Extended Release 12 Hr 1 tab PO QAM PRN (Reason: Allergic Symptoms) pregabalin [Lyrica] 75 mg Capsule 75 mg PO TID calcium carbonate [Tums] 200 mg calcium (500 mg) Tablet,Chewable 400 mg PO HS PRN (Reason: Acid Reflux) Avamys 1 spray intranasal TID diclofenac sodium 100 mg Tablet Extended Release 24 Hr 100 mg PO QAM omeprazole 20 mg Tablet,Delayed Release (Dr/Ec) 20 mg PO DAILY PRN (Reason: Acid Reflux) Xarelto 15 mg Tablet 15 mg PO QAM Rx Instructions: must administer with evening meal Daflon 1,000 mg PO QAM acetaminophen 500 mg Tablet 500 mg PO Q6H PRN (Reason: Pain) Discharge Orders: Discharge Order (Routine); Ordered 12/11/21 Ordered By: Kelvin Vizcaino Admission Data Admit Date/Time: 12/10/21 10:12 Attending Provider: Hermelindo Sanchez Admit Provider: Hermelindo Sanchez Primary Care Provider: Werner Wheatley
[2021-12-11 10:56] LABS: BUN Creatinine Ratio 26.4 (10-20); Calcium 9.3 mg/dl (8.5-10.1); Creatinine Clr Calc Pharmacy 53.7 ml/min; Est GFR (African American) 53.2 ml/min; Est GFR (Non-African American) 45.9 ml/min; Potassium 4.5 mmol/L (3.5-5.1)
[2021-12-11] MEDS: oxyCODONE HCL IR 5 MG TAB (IMMEDIATE RELEASE) PO PRN (12:52)
[2021-12-12] MEDS ORDERED: DICLOFENAC SODIUM 25 MG TABDR PO SCH (09:00)
== END 2021-12-11 13:13 | disposition home health service (06) ==
LOC: 3E 06:23 → ASU 06:23